=== PATIENT | female | born 1975 | race Caucasian/White ===

== ENCOUNTER 2017-09-14 07:05 | Inpatient (IN) | payer BC ==
[~2017-09-14] VITALS: Ht 167.6 cm; Wt 97.3 kg
[2017-09-14] VITALS (20 sets, daily range): BP systolic 102–138; BP diastolic 60–92
[~2017-09-14 07:05] MED LIST: ENDOCET 5-3251 EACH PO; MOTRIN800 MG PO; NATALCARE RX1 TABLE1 PO
[2017-09-14 08:22] LABS: EOSINOPHIL (%) 0.3 % (0-5); HEMATOCRIT 30.3 % (36.0-46.0); IMMATURE GRANULOCYTE (%) 0.4 % (0.0-0.7); INSTRUMENT ABS NEUTROPHIL CT 7.9 K/uL; LYMPHOCYTE COUNT 1.3 K/uL (1.0-2.8); MCH 29.3 PG (29.0-34.0); MCV 88.9 FL (83-99); MEAN PLAT.VOLUME 11.6 uM^3 (9.5-12.4); MONOCYTE (%) 3.6 % (3-12); MONOCYTE COUNT 0.3 K/uL (0-0.8); NEUTROPHIL (%) 82.2 % (45-76); NEUTROPHIL COUNT 7.9 K/uL (1.8-6.4); PLATELET COUNT 191 K/uL (156-360); RBC DIS.WIDTH-CV 14.6 % (11.8-14.6); RBC DIS.WIDTH-SD 47.2 % (39-53); RED BLOOD COUNT 3.41 M/uL (3.80-5.20); WHITE BLOOD COUNT 9.6 K/uL (4.1-10.2)
[2017-09-14] MEDS ORDERED: IBUPROFEN800 MG PO (21:25)
[2017-09-15 00:26] VITALS: BP 122/65
[2017-09-15 07:31] VITALS: BP 142/82
[2017-09-15 15:18] VITALS: BP 140/86
== END 2017-09-16 13:16 | disposition home or self-care (01) | DRG 775 ==
LOC: LDRP-OP 07:05 → 2WEST 07:06 → LDRP-OP 08:14 → 2WEST 21:02 → LDRP-OP 10-06 13:34
PROVIDERS: Advanced Practice Midwife
PROC: 10E0XZZ Delivery of Products of Conception, External Approach (ICD-10-PCS; principal; 2017-09-14)
PROC: 3E033VJ Introduction of Other Hormone into Peripheral Vein, Percutaneous Approach (ICD-10-PCS; 2017-09-14)
PROC: 10907ZC Drainage of Amniotic Fluid, Therapeutic from Products of Conception, Via Natural or Artificial Opening (ICD-10-PCS; 2017-09-14)
DX: O48.0 Post-term pregnancy (principal); O34.219 Maternal care for unspecified type scar from previous cesarean delivery; O36.63X0 Maternal care for excessive fetal growth, third trimester, not applicable or unspecified; O99.213 Obesity complicating pregnancy, third trimester; E66.9 Obesity, unspecified; Z68.32 Body mass index [BMI] 32.0-32.9, adult; Z3A.41 41 weeks gestation of pregnancy; Z37.0 Single live birth
CPT/HCPCS: 85025; 88307; J7120